=== PATIENT | male | born 1995 | race African-American/Black ===

== ENCOUNTER 2024-06-08 19:46 | Emergency (ER) | payer SELFPAY ==
[~2024-06-08] VITALS: Ht 177.8 cm; Wt 77.0 kg
[2024-06-08] MEDS ORDERED: LORAZEPAM 2MG/ML INJ IM ONE (20:00)
[2024-06-08] MEDS: HALOPERIDOL LACTATE 5MG/ML VIAL IM STA (20:23)
[2024-06-08] MEDS: DIPHENHYDRAMINE 50MG/ML VIAL IM STA (20:23)
[2024-06-08] MEDS: LORAZEPAM 2MG/ML UD SYRINGE IM NR (20:24)
[2024-06-08 20:56] VITALS: O2SAT 98
[2024-06-08] MEDS: MIDAZOLAM HCL 2 MG/2 ML VIAL IM ONE (20:56)
[2024-06-08 21:50] LABS: CLARITY URINE CLEAR (CLEAR); COLOR URINE YELLOW (YELLOW); GLUCOSE URINE NEGATIVE (NEGATIVE); KETONES URINE TRACE (NEGATIVE); LEUKOCYTE ESTERASE URINE NEGATIVE (NEGATIVE); NITRITE URINE NEGATIVE (NEGATIVE); OCCULT BLOOD URINE TRACE (NEGATIVE); PH URINE 5.5 (4.5-8.0); PROTEIN URINE 1+ (NEGATIVE); SPECIFIC GRAVITY URINE 1.026 (1.005-1.030)
[2024-06-08 22:00] LABS: BASOPHILS % 0.4 % (0.0-2.0); EOSINOPHILS % 0.9 % (0.0-5.0); HEMATOCRIT. 38.1 % (42.0-52.0); HEMOGLOBIN. 12.6 g/dL (14.0-18.0); LYMPHOCYTES % 13.3 % (20.0-50.0); MEAN CORPUSCULAR HEMOGLOBIN 28.6 pg (28.0-32.0); MEAN CORPUSCULAR VOLUME 86.6 fL (80.0-94.0); MEAN PLATELET VOLUME 8.7 fl (7.4-10.4); MONOCYTES % 4.6 % (2.0-8.0); NEUTROPHILS % 80.8 % (40.0-76.0); PLATELET 264 x1000/uL (130-400); RED CELL DISTRIBUTION WIDTH 14.1 % (11.6-14.6); WHITE BLOOD COUNT 12.1 x1000/uL (4.5-11.0)
[2024-06-08 22:08] LABS: CHLORIDE 108 mEq/L (98-107); POTASSIUM 3.6 mEq/L (3.5-5.1); SODIUM 141 mEq/L (136-145)
[2024-06-08 22:09] LABS: CARBON DIOXIDE 25 mEq/L (21-32)
[2024-06-08 22:12] LABS: *AMPHETAMINES SCREEN URINE PRESUMPTIVE POSITIVE (NEGATIVE); *BARBITURATES SCREEN URINE NEGATIVE (NEGATIVE); *COCAINE SCREEN URINE NEGATIVE (NEGATIVE); METHADONE URINE SCREEN NEGATIVE (NEGATIVE); OPIATES URINE SCREEN NEGATIVE (NEGATIVE)
[2024-06-08 22:13] LABS: CANNABINOID URINE SCREEN PRESUMPTIVE POSITIVE (NEGATIVE); ECSTASY MDMA SCREEN URINE NEGATIVE (NEGATIVE); PHENCYCLIDINE URINE SCREEN NEGATIVE (NEGATIVE)
[2024-06-08 22:14] LABS: CREATININE 1.3 mg/dL (0.6-1.3); ETHANOL BLOOD < 10 mg/dL (<10); GLUCOSE 103 mg/dL (70-105); UREA NITROGEN BLOOD 13 mg/dL (9-23)
[2024-06-08 22:16] LABS: ACETAMINOPHEN < 2 ug/mL (10-30)
[2024-06-08 22:21] LABS: *BENZODIAZEPINES SCREEN URINE NEGATIVE (NEGATIVE)
[2024-06-08 22:25] LABS: BACTERIA URINE NONE SEEN; RBC URINE 0-2 /hpf (0-2); SQUAMOUS EPITHELIAL CELL URINE RARE /lpf (RARE/1+); WBC URINE NONE SEEN /hpf (0-2)
[2024-06-09 10:00] VITALS: BP 125/85; PULSE 85; RESP 18; TEMP 37; O2SAT 98
== END 2024-06-09 10:31 | disposition home or self-care (01) ==
LOC: ER 19:46
DX: R45.851 Suicidal ideations (principal); R41.0 Disorientation, unspecified; F15.10 Other stimulant abuse, uncomplicated; Z79.899 Other long term (current) drug therapy
CPT/HCPCS: 80305; 80048; 81003; 80307; 80329; 80320; 85025; 36415; 96372; 99291; J1200; J1630; J2060; J2250; Z7610 ×3; G0480

== ENCOUNTER 2024-07-20 00:40 | Emergency (ER) | payer MEDICAID ==
[~2024-07-20] VITALS: Ht 182.9 cm; Wt 78.0 kg
[2024-07-20 00:57] VITALS: BP 146/99; PULSE 102; RESP 18; TEMP 36.7; O2SAT 100
[2024-07-20] MEDS ORDERED: ASPIRIN 81MG TABLET PO ONE (02:00)
[2024-07-20] MEDS ORDERED: NITROGLYCERIN 0.4MG TABLET SL SL ONE (02:00)
== END 2024-07-20 04:10 | disposition left against medical advice (07) ==
LOC: ER 00:47
DX: R07.89 Other chest pain (principal); F10.90 Alcohol use, unspecified, uncomplicated; F19.90 Other psychoactive substance use, unspecified, uncomplicated; Y90.9 Presence of alcohol in blood, level not specified
CPT/HCPCS: 93005; 99283